=== PATIENT | male | born 1965 | race African-American/Black ===

== ENCOUNTER 2022-04-18 02:32 | Emergency (ER) | payer MEDICAID, SELFPAY ==
--- NOTE | ~2022-04-18 | XR_ITS ---
EXAMINATION: XR HAND, LEFT CLINICAL INFORMATION: Fifth digit deformity COMPARISON: None TECHNIQUE: PA, lateral, and oblique views of the left hand. FINDINGS: No acute fracture or dislocation. Alignment is anatomic. Small marginal ossified is present throughout the interphalangeal joints, most notably involving the fourth distal interphalangeal joint. Moderate marginal osteophytes of the first CMC joint. No erosions or soft tissue calcifications. XR/XR hand LT min 3V IMPRESSION: No acute fracture or dislocation.
[2022-04-18 02:59] VITALS: BP 139/82; PULSE 83; RESP 18; TEMP 36.6; O2SAT 97; BMI 29.7
--- OUTSIDE RECORDS SUMMARY | 2022-04-18 04:45 | XMS_ITS | Continuity of Care Document ---
:1965 Author Organization [facility] Care Team Providers Name Role Phone [facility] Unavailable Unavailable Problems Combined list of problems from [facility] and [facility] facilities. It does not include entries that were removed or entered in error. Problem Status Onset Date Problem Type Date of Comments Source Resolution Homeless Active Condition [facility] single person [facility]
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
== END 2022-04-18 05:26 | disposition home or self-care (01) ==
PROVIDERS: Emergency Provider Student in an Organized Health Care Education/Training Program
DX: S63.297A Dislocation of distal interphalangeal joint of left little finger, initial encounter (principal); X99.1XXA Assault by knife, initial encounter; Y93.9 Activity, unspecified; Y92.9 Unspecified place or not applicable; Y99.9 Unspecified external cause status; M79.642 Pain in left hand
CPT/HCPCS: 26770; 73130; 99283

== ENCOUNTER 2022-12-28 08:30 | Outpatient (REF) | payer OTHER, SELFPAY ==
[2022-12-28 11:12] LABS: MANUAL DIFF FLAG NO
[2022-12-28 11:29] LABS: Appearance Urine Clear; Color Urine Yellow; Glucose Urine UA Negative (Negative); Leukocyte Esterase Urine Negative (Negative); Nitrite Urine Negative (Negative); PH 6.5 (5.0-9.0); Specific Gravity - Urine 1.025 (1.005-1.025); UMIC TRIGGER UA YES; Urine Blood Small (1+) (Negative); Urine Ketones Trace mg/dL (Negative); Urine Protein Trace mg/dL (Neg-Trace)
[2022-12-28 11:32] LABS: Basophils Absolute Auto 0.1 X10*3/uL (0.0-0.2); Basophils Percent Auto 1.2 % (0-2); Eosinophils Absolute Auto 0.2 X10*3/uL (0.0-0.4); Eosinophils Percent Auto 2.6 % (0-4); Hematocrit 53.1 % (42.0-52.0); Hemoglobin 17.5 g/dl (14.0-18.0); Imm Gran Abs Auto 0.02 X10*3/uL (0.00-0.03); Imm Gran Pct Auto 0.3 % (0.0-0.4); Lymphocytes Absolute Auto 2.1 X10*3/uL (1.2-4.9); Lymphocytes Percent Auto 26.9 % (20-40); Mean Corpuscular Hemoglobin 31.7 pg (27.0-33.0); Mean Corpuscular Volume 96.2 fL (80.0-98.0); Mean Platelet Volume 9.9 fL (9.4-12.4); Monocytes Absolute Auto 0.7 X10*3/uL (0.1-1.2); Monocytes Percent Auto 9.1 % (2-11); Neutrophils Absolute Auto 4.6 x10*3/uL (2.0-8.3); Neutrophils Percent Auto 59.9 % (45-73); Platelet Count 284 X10*3/uL (160-400); Red Blood Count 5.52 X10*6/uL (4.60-5.80); Red Cell Distribution Width 13.1 % (11.0-16.0); White Blood Count 7.7 X10*3/uL (4.8-10.8)
[2022-12-28 11:34] LABS: Bacteria Urine None Seen (None Seen); Hyaline Casts Urine 0-2 /LPF (0-2); Squamous Epithelial Cell Urine 0-2 /HPF (0-2); WBC Urine 0-5 /HPF (0-5)
[2022-12-28 12:08] LABS: Alanine Aminotransferase 15 U/L (0-40); Albumin Level 4.6 g/dL (3.5-5.0); Alkaline Phosphatase 83 U/L (39-117); Anion Gap 13 (12-20); Aspartate Amino Transferase 21 U/L (5-37); Bilirubin Total 0.6 mg/dL (0.0-1.0); Blood Urea Nitrogen 10 mg/dL (9-16); Calcium 10.2 mg/dL (8.4-10.2); Carbon Dioxide 29 mmol/L (22-29); Chloride 106 mmol/L (96-108); Cholesterol 173 mg/dL; Estimated Glomerular Filt Rate 54; Glucose Fasting 91 mg/dL (60-99); HDL Cholesterol 71 mg/dL; LDL Cholesterol Calculated 85 mg/dl; Potassium 3.8 mmol/L (3.3-5.1); Sodium 144 mmol/L (135-145); Triglycerides 88 mg/dL
[2022-12-28 12:09] LABS: PSA,Total (Free>4and<10) 0.66 ng/mL (0.00-4.00)
== END 2022-12-28 08:31 | disposition home or self-care (01) ==
LOC: HO.HMGCLDS 08:30
PROVIDERS: PCP Internal Medicine; Visit Provider Internal Medicine
DX: Z00.00 Encounter for general adult medical examination without abnormal findings (principal); F41.9 Anxiety disorder, unspecified; Z20.2 Contact with and (suspected) exposure to infections with a predominantly sexual mode of transmission; Z12.5 Encounter for screening for malignant neoplasm of prostate
CPT/HCPCS: 36415; 80053; 80061; 81001; 84153; 85025

== ENCOUNTER 2023-03-17 12:05 | Outpatient (RCR) | payer OTHER, SELFPAY ==
--- NOTE | 2023-03-18 09:34 | PC.NURSE ---
Dominguez did not show up to the program this morning. I called him and left him a message to call me back.
--- NOTE | 2023-03-18 09:48 | PC.NURSE ---
Dominguez has not called me back, per [facility] protocol, I called and left a message with Dominguez's mother Shyanne Benítez, who is listed as his emergency contact, to contact me regarding her son.
--- NOTE | 2023-03-18 12:10 | PC.NURSE ---
Dominguez called and stated he was having transportation issues today. He is getting transportation from [place] [facility] program and it should be implemented by tomorrow. [facility] staff is aware.
--- NOTE | 2023-03-19 15:30 | PC.NURSE ---
Patient did not show up to the program this morning. He was having transportation issues yesterday. I called him and left him a message to call me back. [facility] staff aware. He will be discharged from the program per [facility] team.
== END 2023-03-17 23:59 | disposition home or self-care (01) ==
LOC: HO.PHPA 12:05
PROVIDERS: Visit Provider Psychiatry & Neurology Psychiatry
DX: F33.1 Major depressive disorder, recurrent, moderate (principal); F43.10 Post-traumatic stress disorder, unspecified; F41.9 Anxiety disorder, unspecified; F14.90 Cocaine use, unspecified, uncomplicated
CPT/HCPCS: 90791

== ENCOUNTER 2023-11-23 18:43 | Emergency (ER) | payer OTHER, SELFPAY | END 2023-11-23 20:54 | disposition left against medical advice (07) | LOC: HO.ED 20:52 | PROVIDERS: Emergency Provider Emergency Medicine | DX: R22.0 Localized swelling, mass and lump, head (principal) ==

== ENCOUNTER 2024-03-09 10:33 | Outpatient (AMB) | payer OTHER, SELFPAY ==
--- NOTE | 2024-03-09 10:40 | A.OFFPC_ITS ---
Vital Signs 03/09/24 10:41 Height 6 ft 1 in Weight 236 lb BMI 31.1 BP 108/66 Blood Pressure Location Lt brachial Position Sitting Pulse 95 Pulse Source Pulse Oximeter Pulse Oximetry (%) 98 Oxygen Delivery Method Room Air Intake Visit Reasons: Annual PE/provider out Intake Note: Pt is here today for PE, Allergies No Known Allergies Allergy (Verified 03/09/24 10:42) Medication List - Last Reconciled 03/09/24 by Silvia Wong MD bisacodyl (Dulcolax (bisacodyl)) 20 mg (4 x 5 mg) PO ONCE 1 day polyethylene glycol 3350 (Miralax) 238 grams PO ONCE 1 day Tobacco use date assessed: 03/09/24 Dental Screening Dental Screen Date: 03/09/24 Did you have a dental visit in the last 12 months?: Yes Did you have a dental problem in the last 6 months where you did not have access to dental care?: No Was dental information given to patient?: Patient has dentist HPI Annual PE/provider out HPI Details Patient presents for physical. He did not have colonoscopy last year because could not refill the prescription for a prep. [facility] Surgical History No pertinent past surgical history Family History Father No problems noted. Mother No problems noted. Social History Household Members: None Household Members Other:: , on disabilty for mental health, Housing: House Patient Tobacco Use Status: Current someday Tobacco user Tobacco use type: Cigarette Cigarettes Per Day: 2 e-Cigarette/Vaping Use: Never Used service: No Current occupational status: unemployed Cognitive needs: No Hearing needs: No Vision needs: No Questionnaire PHQ-9 Over the last 2 weeks, how often have you been bothered by any of the following problems? 1. Little interest or pleasure in doing things: several days 2. Feeling down, depressed, or hopeless: several days 3. Trouble falling or staying asleep, or sleeping too much: several days 4. Feeling tired or having little energy: not at all 5. Poor appetite or overeating: several days 6. Feeling bad about yourself - or that you are a failure or have let yourself or your family down: several days 7. Trouble concentrating on things, such as reading the newspaper or watching television: not at all 8. Moving or speaking so slowly that other people could have noticed. Or the opposite - being so fidgety or restless that you have been moving around a lot more than usual: not at all 9. Thoughts that you would be better off or of hurting yourself in some way: not at all Total score: 5 Depression Screening Interpretation: Negative Depression Screening Done: Yes 75031 - PHQ-9 Billing: Yes Source: Developed by Drs. Andrzej De, Tenisha Rucker, Norberto Silvestre and colleagues, with an educational wallace from [employer]. Thrive Questionnaire Date Thrive assessed: 03/09/24 I am a: Patient What is your living situation today?: I have a steady place to live Within the past 12 months, did the food you bought not last and you didn't have the money to get more?: I choose not to answer this question Within the past 12 months, did you worry whether your food would run out before you got money to buy more?: I choose not to answer this question Do you have trouble paying for medicines?: Yes Do you have trouble getting transportation to medical appointments?: I choose not to answer this question Do you have trouble paying your heating and electricity bill?: No Do you have trouble taking care of your child, family member or friend?: No Do you have trouble with day-to-day activities such as bathing, preparing meals, shopping, managing finances, etc.?: I choose not to answer this question Are you currently unemployed and looking for a job?: No Are you interested in more education?: Yes Please select the resources that you would like help with: None THRIVE Score: 0 AUDIT C Alcohol Use Questionnaire (AUDIT-C) 1. How often do you have a drink containing alcohol?: Never 3. How often do you have six or more drinks on one occasion?: Never Total Score: 0 CARLITOS-7 AMB Questionnaire CARLITOS-7 Date CARLITOS - 7 assessed: 03/09/24 Feeling nervous, anxious, or on edge: 1 = Several days Not being able to stop or control worryin = More than half the days Worrying too much about different things: 1 = Several days Trouble relaxin = More than half the days Being so restless that it is hard to sit still: 1 = Several days Becoming easily annoyed or irritable: 2 = More than half the days Feeling afraid as if something awful might happen: 2 = More than half the days Total CARLITOS-7 score (0-4 normal; 5-9 mild; 10-14 moderate; 15-21 severe): 11 Source: Developed by Drs. Andrzej De, Tenisha Rucker, Norberto Silvestre and colleagues, with an educational wallace from [employer]. CARLITOS-7 Assessment Billing CARLITOS-7 Assessment Tool: CARLITOS-7 Assessment 19351 Review of Systems Const All systems reviewed & are unremarkable except as noted in HPI and below Eyes Reports no additional complaints ENT Reports no additional complaints Card Reports no additional complaints Resp Reports no additional complaints GI Reports no additional complaints Reports no additional complaints Physical exam (Primary Care) Vital Signs: Last Vital Signs Pulse 95 03/09/24 10:41 BP 108/66 03/09/24 10:41 Pulse Ox 98 03/09/24 10:41 Oxygen Delivery Method Room Air 03/09/24 10:41 BMI result Body Mass Index 31.1 Tobacco/Smoking Status: Tobacco use Status Tobacco use date assessed 03/09/24 03/09/24 10:48 Patient Tobacco Use Status Current someday Tobacco 03/09/24 10:40 Tobacco use type Cigarette 03/09/24 10:48 e-Cigarette/Vaping Use Never Used 03/09/24 10:40 PHQ-9: PHQ-9 Score PHQ-9: Total score 5 03/09/24 10:48 Depression Screening Interpretation: Negative Thrive Assessment: Date of Thrive Assessment Date Thrive assessed 03/09/24 03/09/24 10:48 Const General: no acute distress HENMT Head: Yes normal to inspection Ears: hearing grossly normal bilaterally Face and sinus: Yes normal facial exam Mouth: Normal oral and palatal mucosa present Throat: Yes posterior oropharynx normal Eyes General: appearance normal, both eyes and all related structures Neck Neck: Yes supple Resp Effort & Inspection: normal respiratory effort Auscultation: clear to auscultation bilaterally Cardio Rhythm: regular rhythm Heart sounds: S1 normal heart sound present and S2 normal heart sound present GI Inspection: Yes normal to inspection Palpation (GI): Soft to palpation Percussion: Yes normal to percussion Auscultation: normal bowel sounds Assessment and Plan Assessment & Plan (1) Annual physical exam: Code(s): Z00.00 - Encounter for general adult medical examination without abnormal findings Plan: Well-balanced diet regular physical activity weight loss discussed with the patient he will return for fasting blood work. Patient will call GI to schedule colonoscopy (2) Microscopic hematuria: Comment: Referred to urology Code(s): R31.29 - Other microscopic hematuria Plan: Check UA, renal and bladder ultrasound and refer to Urology Orders: Orders Comprehensive [place]. Panel Fast Today Z00.00 - Encounter for general adult medical examination without abnormal findings Complete Blood Count Auto Diff Today Z00.00 - Encounter for general adult medical examination without abnormal findings Lipid Panel Today Z00.00 - Encounter for general adult medical examination without abnormal findings PSA,Total (Free>4and<10) Today Z00.00 - Encounter for general adult medical examination without abnormal findings UA w Microscopic Today Z00.00 - Encounter for general adult medical examination without abnormal findings US renal BI Today R31.29 - Other microscopic hematuria US bladder Today R31.29 - Other microscopic hematuria Referrals Urology Referral R31.29 - Other microscopic hematuria Coding Level of Care Code Est Pt Prev Care 40-64y(78038) Diagnoses Annual physical exam Z00.00 Microscopic hematuria R31.29 Additional Codes CARLITOS-7 Assessment Billing - CARLITOS-7 Assessment Tool: CARLITOS-7 Assessment 06730 ([id number])
[2024-03-09 10:41] VITALS: BP 108/66; PULSE 95; O2SAT 98; BMI 31.1
== END 2024-03-09 11:29 | disposition home or self-care (01) ==
PROVIDERS: Visit Provider Internal Medicine
DX: Z00.00 Encounter for general adult medical examination without abnormal findings (principal); R31.29 Other microscopic hematuria
CPT/HCPCS: 99396

== ENCOUNTER 2024-04-03 13:03 | Outpatient (REF) | payer OTHER, SELFPAY ==
--- NOTE | ~2024-04-03 | US_ITS ---
EXAMINATION: US RETROPERITONEAL LIMITED (RENAL ONLY) CLINICAL INFORMATION: Other microscopic hematuria. COMPARISON: None available. TECHNIQUE: Real-time imaging of the kidneys. FINDINGS: RIGHT KIDNEY: 10.8 x 5.6 x 6.3 cm (SAG x AP x TRV). The kidney is normal in size, contour, and echogenicity. Renal cortical thickness is normal. No calculi or focal parenchymal lesions. No hydronephrosis. LEFT KIDNEY: 10.1 x 5.8 x 6.0 cm (SAG x AP x TRV). The kidney is normal in size, contour, and echogenicity. Renal cortical thickness is normal. No renal calculi or hydronephrosis. Simple appearing exophytic cyst from the lateral cortex of the interpolar kidney measuring 1.5 cm, for which no routine imaging follow-up is recommended. US/US renal BI IMPRESSION: No acute sonographic abnormalities. Electronically signed by: Klaudia Baires MD 04/11/2024 04:06 PM EDT
== END 2024-04-03 13:04 | disposition home or self-care (01) ==
LOC: HO.HMGCX 13:03
PROVIDERS: PCP Internal Medicine; Visit Provider Internal Medicine
DX: R31.29 Other microscopic hematuria (principal)
CPT/HCPCS: 76775

== ENCOUNTER 2024-04-04 11:13 | Outpatient (REF) | payer OTHER, SELFPAY ==
--- NOTE | ~2024-04-04 | US_ITS ---
EXAMINATION: US PELVIS LIMITED (BLADDER) CLINICAL INFORMATION: Microscopic hematuria. COMPARISON: None available. TECHNIQUE: Real-time imaging of the bladder. FINDINGS: BLADDER: Well distended and normal. Bilateral ureteral jets are not demonstrated. Prevoid bladder volume is 143 mL. Postvoid bladder volume is 1.2 mL. Prostate is normal in size measuring 20.2 mL. US/US bladder IMPRESSION: Unremarkable sonographic appearance of the bladder. Electronically signed by: Breann Salazar MD 04/10/2024 05:16 PM EDT
== END 2024-04-04 11:14 | disposition home or self-care (01) ==
LOC: HO.HMGCX 11:13
PROVIDERS: PCP Internal Medicine; Visit Provider Internal Medicine
DX: R31.29 Other microscopic hematuria (principal)
CPT/HCPCS: 76857

== ENCOUNTER 2024-04-21 09:22 | Outpatient (AMB) | payer OTHER, SELFPAY ==
[2024-04-21 09:23] VITALS: BP 110/70; PULSE 98; O2SAT 95; BMI 31.3
--- NOTE | 2024-04-21 09:23 | A.OFFPC_ITS ---
Vital Signs 04/21/24 09:23 Height 6 ft 1 in Weight 237 lb BMI 31.3 BP 110/70 Blood Pressure Location Rt brachial Position Sitting Pulse 98 Pulse Source Pulse Oximeter Pulse Oximetry (%) 95 Oxygen Delivery Method Room Air Intake Visit Reasons: L bicep pain Intake Note: Pt is here today for a sick visit. Pt c/o L bicep pain. Allergies No Known Allergies Allergy (Verified 04/21/24 09:26) Medication List - Last Reconciled 04/21/24 by Silvia Wong MD bisacodyl (Dulcolax (bisacodyl)) 20 mg (4 x 5 mg) PO ONCE 1 day polyethylene glycol 3350 (Miralax) 238 grams PO ONCE 1 day Tobacco use date assessed: 04/21/24 Dental Screening Dental Screen Date: 03/09/24 HPI L bicep pain HPI Details Pt c/o L shoulder pain after pulling and falling down on left arm 1 week ago. Patient reports pain when lifting overhead or carrying heavy. He als o noticed deformity of left biceps muscle but denies weakness in her left upper extremity. Patient complains of bilateral hip and lateral thigh pain and stiffness worse when walking for many months. Patient has not been exercising regularly. He has seen a chiropractor who has advised him to start stretching exercises, [facility] Surgical History No pertinent past surgical history Family History Father No problems noted. Mother No problems noted. Social History Household Members: None Household Members Other:: , on disabilty for mental health, Housing: House Patient Tobacco Use Status: Current someday Tobacco user Tobacco use type: Cigarette Cigarettes Per Day: 2 e-Cigarette/Vaping Use: Never Used service: No Current occupational status: unemployed Cognitive needs: No Hearing needs: No Vision needs: No Questionnaire Thrive Questionnaire Date Thrive assessed: 03/09/24 CARLITOS-7 AMB Questionnaire CARLITOS-7 Date CARLITOS - 7 assessed: 03/09/24 Source: Developed by Drs. Andrzej De, Tenisha BNorberto Sanders and colleagues, with an educational wallace from [employer]. Review of Systems Const All systems reviewed & are unremarkable except as noted in HPI and below Resp Reports no additional complaints GI Reports no additional complaints Reports no additional complaints Musc Reports no additional complaints Physical exam (Primary Care) Vital Signs: Last Vital Signs Pulse 98 04/21/24 09:23 BP 110/70 04/21/24 09:23 Pulse Ox 95 04/21/24 09:23 Oxygen Delivery Method Room Air 04/21/24 09:23 BMI result Body Mass Index 31.3 Tobacco/Smoking Status: Tobacco use Status Tobacco use date assessed 04/21/24 04/21/24 09:30 Patient Tobacco Use Status Current someday Tobacco 04/21/24 09:25 Tobacco use type Cigarette 04/21/24 09:25 e-Cigarette/Vaping Use Never Used 04/21/24 09:25 Thrive Assessment: Date of Thrive Assessment Date Thrive assessed 03/09/24 04/21/24 09:25 Const General: no acute distress Neck Neck: Yes supple Resp Effort & Inspection: normal respiratory effort Auscultation: clear to auscultation bilaterally Cardio Rhythm: regular rhythm Heart sounds: S1 normal heart sound present and S2 normal heart sound present Extrem Other: There is a decreased range of motion of the left shoulder, deformity of left biceps muscle but strength intact, there is a tenderness over anterior aspect of left shoulder no soft tissue swelling erythema or warmth. There is a decreased range of motion of both hips and trochanteric areas tenderness bilaterally Coding Level of Care Code Est Pt Level 3 (29414) Diagnoses Left shoulder pain M25.512 Hip pain, bilateral M25.551; M25.552 Assessment & Plan Assessment & Plan (1) Left shoulder pain: Code(s): M25.512 - Pain in left shoulder Category: Medical Plan: Obtain x-ray and meloxicam as prescribed. Patient was advised to do range of motion shoulder exercises (2) Hip pain, bilateral: Code(s): M25.551 - Pain in right hip; M25.552 - Pain in left hip Category: Medical Plan: Obtain x-rays of both hips and referred to PT. orthopedic referral if there is no improvement after PT Orders: Orders PT Evaluation and Treatment Today M25.551 - Pain in right hip, M25.552 - Pain in left hip XR hips JESU min 3V Today M25.551 - Pain in right hip, M25.552 - Pain in left hip XR shoulder LT min 2V Today M25.512 - Pain in left shoulder Medications: New meloxicam 15 mg PO DAILY 10 tabs 0RF
== END 2024-04-21 10:01 | disposition home or self-care (01) ==
PROVIDERS: PCP Internal Medicine; Visit Provider Internal Medicine
DX: M25.512 Pain in left shoulder (principal); M25.551 Pain in right hip; M25.552 Pain in left hip

== ENCOUNTER → 2024-04-21 09:22 | Outpatient (BNVA) | payer OTHER, SELFPAY | PROVIDERS: PCP Internal Medicine; Visit Provider Internal Medicine | DX: M25.512 Pain in left shoulder (principal); M25.551 Pain in right hip; M25.552 Pain in left hip | CPT/HCPCS: 99212 ==

== ENCOUNTER 2025-01-23 12:03 | Outpatient (AMB) | payer OTHER, SELFPAY ==
[2025-01-23 12:15] VITALS: BP 118/68; PULSE 88; RESP 20; TEMP 36.7; O2SAT 94; BMI 32.8
--- NOTE | 2025-01-23 12:15 | A.OFFPC_ITS ---
Vital Signs 01/23/25 12:15 Height 6 ft 1 in Weight 249 lb BMI 32.8 BP 118/68 Blood Pressure Location Lt brachial Position Sitting Respiration 20 Pulse 88 Pulse Source Pulse Oximeter Temp 98.1 F Temp Source Oral Pulse Oximetry (%) 94 Oxygen Delivery Method Room Air Intake Visit Reasons: Swollen feet Intake Note: Pt is here today for a sick visit. Pt c/o swelling in feet and lower legs. Allergies No Known Allergies Allergy (Verified 01/23/25 12:23) Medication List - Last Reconciled 01/23/25 by Silvia Wong MD bisacodyl (Dulcolax (bisacodyl)) 20 mg (4 x 5 mg) PO ONCE 1 day polyethylene glycol 3350 (Miralax) 238 grams PO ONCE 1 day Tobacco use date assessed: 01/23/25 Dental Screening Dental Screen Date: 01/23/25 Did you have a dental visit in the last 12 months?: Yes Did you have a dental problem in the last 6 months where you did not have access to dental care?: No Was dental information given to patient?: Patient has dentist HPI Swollen feet HPI Details Patient presents complaining of right lower extremity increasing swelling redness and warmth for 2 weeks. Patient denies fever chills shortness or breath or cough GI or complaints. Patient has a chronic lower extremity swelling on and off for years. He was diagnosed with venous insufficiency and was advised to wear compression knee-highs. Patient complains of bilateral hip pain worse when walking and has not had a x-ray done last year. [facility] Surgical History No pertinent past surgical history Family History Father No problems noted. Mother No problems noted. Social History Household Members: None Household Members Other:: , on disabilty for mental health, Housing: House Patient Tobacco Use Status: Current someday Tobacco user Tobacco use type: Cigarette Cigarettes Per Day: 2 e-Cigarette/Vaping Use: Never Used service: No Current occupational status: unemployed Cognitive needs: No Hearing needs: No Vision needs: No Questionnaire PHQ-9 Over the last 2 weeks, how often have you been bothered by any of the following problems? 1. Little interest or pleasure in doing things: several days 2. Feeling down, depressed, or hopeless: several days 3. Trouble falling or staying asleep, or sleeping too much: several days 4. Feeling tired or having little energy: not at all 5. Poor appetite or overeating: several days 6. Feeling bad about yourself - or that you are a failure or have let yourself or your family down: several days 7. Trouble concentrating on things, such as reading the newspaper or watching television: not at all 8. Moving or speaking so slowly that other people could have noticed. Or the opposite - being so fidgety or restless that you have been moving around a lot more than usual: not at all 9. Thoughts that you would be better off or of hurting yourself in some way: not at all Total score: 5 Depression Screening Interpretation: Negative Depression Screening Done: Yes 96935 - PHQ-9 Billing: Yes Source: Developed by Drs. Andrzej De, Tenisha Rucker, Norberto Silvestre and colleagues, with an educational wallace from [employer]. Thrive Questionnaire Date Thrive assessed: 03/02/24 AUDIT C Alcohol Use Questionnaire (AUDIT-C) 1. How often do you have a drink containing alcohol?: Monthly or less 2. How many drinks containing alcohol do you have on a typical day when you are drinking?: 1 or 2 3. How often do you have six or more drinks on one occasion?: Never Total Score: 1 CARLITOS-7 AMB Questionnaire CARLITOS-7 Date CARLITOS - 7 assessed: 01/23/25 Feeling nervous, anxious, or on edge: 0 = Not at all Not being able to stop or control worryin = Not at all Worrying too much about different things: 0 = Not at all Trouble relaxin = Not at all Being so restless that it is hard to sit still: 0 = Not at all Becoming easily annoyed or irritable: 0 = Not at all Feeling afraid as if something awful might happen: 0 = Not at all Total CARLITOS-7 score (0-4 normal; 5-9 mild; 10-14 moderate; 15-21 severe): 0 Source: Developed by Drs. Andrzej De, Tenisha Rucker, Norberto Silvestre and colleagues, with an educational wallace from [employer]. CARLITOS-7 Assessment Billing CARLITOS-7 Assessment Tool: CARLITOS-7 Assessment 83619 Review of Systems Const All systems reviewed & are unremarkable except as noted in HPI and below Eyes Reports no additional complaints ENT Reports no additional complaints Card Reports no additional complaints Resp Reports no additional complaints GI Reports no additional complaints Reports no additional complaints Physical exam (Primary Care) Vital Signs: Last Vital Signs Temp 98.1 F 01/23/25 12:15 Pulse 88 01/23/25 12:15 Resp 20 01/23/25 12:15 BP 118/68 01/23/25 12:15 Pulse Ox 94 01/23/25 12:15 Oxygen Delivery Method Room Air 01/23/25 12:15 BMI result Body Mass Index 32.8 Tobacco/Smoking Status: Tobacco use Status Tobacco use date assessed 01/23/25 01/23/25 12:27 Patient Tobacco Use Status Current someday Tobacco 01/23/25 12:16 Tobacco use type Cigarette 01/23/25 12:16 e-Cigarette/Vaping Use Never Used 01/23/25 12:16 PHQ-9: PHQ-9 Score PHQ-9: Total score 5 01/23/25 13:34 Depression Screening Interpretation: Negative Thrive Assessment: Date of Thrive Assessment Date Thrive assessed 03/02/24 01/23/25 12:16 Const General: no acute distress HENMT Head: Yes normal to inspection Ears: hearing grossly normal bilaterally Mouth: Normal oral and palatal mucosa present Eyes General: appearance normal, both eyes and all related structures Neck Neck: Yes no lymphadenopathy and Yes supple Resp Effort & Inspection: normal respiratory effort Auscultation: clear to auscultation bilaterally Cardio Rhythm: regular rhythm Heart sounds: S1 normal heart sound present and S2 normal heart sound present GI Inspection: Yes normal to inspection Palpation (GI): Soft to palpation Percussion: Yes normal to percussion Auscultation: normal bowel sounds Extrem Other: 2+ pitting edema right lower extremity with erythema warmth and pustulae, no ulcers, right lower extremity 1+ pitting edema with chronic scarring and venostasis Coding Level of Care Code Est Pt Level 4 (34114) Diagnoses Right leg swelling M79.89 Hip pain, bilateral M25.551; M25.552 Annual physical exam Z00.00 Venous insufficiency of both lower extremities I87.2 Additional Codes CARLITOS-7 Assessment Billing - CARLITOS-7 Assessment Tool: CARLITOS-7 Assessment 57103 ([id number]) PHQ-9 - 59449 - PHQ-9 Billing: Yes ([id number]) Assessment & Plan Assessment & Plan (1) Right leg swelling: Code(s): M79.89 - Other specified soft tissue disorders Category: Medical Plan: Obtain Doppler to rule out DVT. For lower extremity cellulitis cefuroxime 500 mg twice a day for 7 days is prescribed and supportive care including elevation of extremity discussed with the patient (2) Hip pain, bilateral: Code(s): M25.551 - Pain in right hip; M25.552 - Pain in left hip Category: Medical Plan: Obtain x-rays of both hips (3) Annual physical exam: Code(s): Z00.00 - Encounter for general adult medical examination without abnormal findings Category: Medical Plan: Patient will return for fasting blood work and will be referred to GI for colonoscopy (4) Venous insufficiency of both lower extremities: Code(s): I87.2 - Venous insufficiency (chronic) (peripheral) Category: Medical Plan: Patient was advised to wear support knee-highs and elevate lower extremities for chronic venous stasis Orders: Orders US venous duplex LE RT Today M79.89 - Other specified soft tissue disorders Complete Blood Count Auto Diff Today Z00.00 - Encounter for general adult medical examination without abnormal findings Lipid Panel Today Z00.00 - Encounter for general adult medical examination without abnormal findings UA w Microscopic Today Z00.00 - Encounter for general adult medical examination without abnormal findings XR hip BI w PEL1V Today M25.551 - Pain in right hip, M25.552 - Pain in left hip Comprehensive [place]. Panel Fast Today Z00.00 - Encounter for general adult medical examination without abnormal findings PSA,Total (Free>4and<10) Today Z00.00 - Encounter for general adult medical examination without abnormal findings Referrals Gastroenterology Referral Z00.00 - Encounter for general adult medical examination without abnormal findings Medications: New cefuroxime axetil 500 mg PO BID 14 tabs 0RF
== END 2025-01-23 14:38 | disposition home or self-care (01) ==
LOC: HO.HMCC 12:03
PROVIDERS: PCP Internal Medicine; Visit Provider Internal Medicine
DX: M79.89 Other specified soft tissue disorders (principal); M25.551 Pain in right hip; M25.552 Pain in left hip; Z00.00 Encounter for general adult medical examination without abnormal findings; I87.2 Venous insufficiency (chronic) (peripheral)

== ENCOUNTER → 2025-01-23 12:03 | Outpatient (BNVA) | payer OTHER, SELFPAY | PROVIDERS: PCP Internal Medicine; Visit Provider Internal Medicine | DX: Z00.00 Encounter for general adult medical examination without abnormal findings (principal); I87.2 Venous insufficiency (chronic) (peripheral); M25.551 Pain in right hip; M25.552 Pain in left hip; M79.89 Other specified soft tissue disorders | CPT/HCPCS: 96127; 99212 ==

== ENCOUNTER 2025-04-05 16:12 | Outpatient (REF) | payer OTHER, SELFPAY ==
--- NOTE | ~2025-04-05 | US_ITS ---
EXAMINATION: US TRIPLEX LOWER EXTREMITY, RIGHT CLINICAL INFORMATION: Right lower extremity edema COMPARISON: None available. TECHNIQUE: Color-flow triplex imaging with spectral analysis and compression Doppler were performed on the right lower extremity. FINDINGS: Respiratory variation, normal compression and augmented flow are noted throughout the right lower extremity. The visualized common femoral vein, superficial femoral vein, profunda femoral vein, popliteal vein and midcalf peroneal and posterior tibial venous segments show no evidence of deep venous thrombosis. US/US venous duplex LE RT IMPRESSION: No evidence of deep venous thrombosis involving the right lower extremity. Electronically signed by: Ba Hui MD 04/05/2025 04:44 PM EDT
--- NOTE | ~2025-04-05 | XR_ITS ---
EXAMINATION: XR BILATERAL HIPS WITH AP PELVIS CLINICAL INFORMATION: M25.551 - Pain in right hip COMPARISON: None available. TECHNIQUE: AP and frog-leg lateral views of each hip and an AP view of the pelvis. FINDINGS: AP pelvis demonstrates mild subchondral sclerosis in the upper SI joints. Marginal osteophytes are present in the inferior SI joints. Numerous calcific lesions in the pelvis are related to phleboliths and atherosclerotic disease. Right hip: There is severe narrowing of the superior lateral joint space with subchondral sclerosis cystic change on both sides of the joint. Marginal osteophytes are present involving the femoral neck, fovea and acetabular roof. Left hip: There is severe narrowing of the superior lateral joint space with subchondral sclerosis cystic change on both sides of the joint. Marginal osteophytes are present involving the femoral neck, fovea and acetabular roof. XR/XR hip BI w PEL1V IMPRESSION: Severe osteoarthritis of bilateral hip joints. Mild to moderate degenerative changes in bilateral SI joints. Electronically signed by: Ba Hui MD 04/05/2025 04:56 PM EDT
== END 2025-04-05 16:13 | disposition home or self-care (01) ==
LOC: HO.US 16:12
PROVIDERS: PCP Internal Medicine; Visit Provider Internal Medicine
DX: M79.89 Other specified soft tissue disorders (principal); M25.551 Pain in right hip; M25.552 Pain in left hip
CPT/HCPCS: 73521; 93971

== ENCOUNTER → 2025-04-05 16:16 | Outpatient (BNV) | payer OTHER, SELFPAY | PROVIDERS: PCP Internal Medicine; Visit Provider Radiology Diagnostic Radiology | DX: R22.41 Localized swelling, mass and lump, right lower limb (principal); M16.0 Bilateral primary osteoarthritis of hip | CPT/HCPCS: 73521; 93971 ==